=== PATIENT | male | born 1985 | race Caucasian/White ===

== ENCOUNTER 2016-07-16 01:26 | Emergency (ER) | payer SELFPAY ==
[~2016-07-16] VITALS: Ht 175.3 cm; Wt 83.9 kg
[2016-07-16] MEDS ORDERED: ONDANSETRON HCL/PF 4 MG/2 ML VIAL ONE (02:05)
[2016-07-16] MEDS ORDERED: HYDROMORPHONE 1 MG/1 ML DISP.SYRIN ONE (02:05)
[2016-07-16] MEDS ORDERED: IV SET PRIMARY 1 EA INFUS.SET MC ONE (02:05)
[2016-07-16] MEDS ORDERED: IV NS 0.9% 1,000 ML ONE (02:05)
--- NOTE | 2016-07-16 02:14 | NUR ---
PT A/OX4 BREATHING EFFORTLESSLY ON ROOM AIR, PT STATES HE STARTED HAVING ABD PAIN RADIATING TOWARDS HIS BACK X 3 HOURS, PT STATES HE HAS BEEN HVAING N/V BUT DENIES DIARRHEA, PT ON MONITOR, IV PLACED, LABS DRAWN, IN ROOM, WILL CONTINUE TO MONITOR
[2016-07-16] MEDS ORDERED: HYDROMORPHONE INJ 2 MG/ML DISP.SYRIN IV ONE (02:30)
[2016-07-16] MEDS ORDERED: ONDANSETRON HCL/PF 4 MG/2 ML VIAL IVP ONE (02:30)
[2016-07-16] MEDS ORDERED: IV NS 0.9% 1,000 ML BAG IV ONE (02:30)
--- NOTE | 2016-07-16 02:33 | NUR ---
PT STATES HE IS FEELING ALOT BETTER AFTER THE PAIN MEDICATION, MD MADE AWARE WILL CONTINUE TO MONITOR.
[2016-07-16 02:42] LABS: BASOPHILS # (AUTO) 0.1 /CMM (0.0-0.2); BASOPHILS % (AUTO) 0.3 % (0.0-2.0); EOSINOPHILS % (AUTO) 0.2 % (0.0-6.0); HEMATOCRIT 47 % (39-51); HEMOGLOBIN 16.2 g/dL (13.5-17.5); LYMPHOCYTES # (AUTO) 2.1 /CMM (0.8-4.8); MEAN CORPUSCULAR HEMOGLOBIN 30 PG (26.0-33.0); MEAN CORPUSCULAR HGB CONC 34 g/dl (31.0-36.0); MEAN CORPUSCULAR VOLUME 87 fL (80-96); MONOCYTES # (AUTO) 0.8 /CMM (0.1-1.30); MONOCYTES % (AUTO) 5.2 % (2.0-12.0); NEUTROPHILS % (AUTO) 81.3 % (43.0-81.0); PLATELET COUNT (AUTO) 289 /CMM (150-450); RDW COEFFICIENT OF VARIATION 12.6 (11.5-15.0); RED BLOOD CELL COUNT(AUTO) 5.42 MIL/uL (4.5-6.0)
[2016-07-16 02:54] LABS: CALCIUM, SERUM 9.2 mg/dL (8.5-10.1); CREATININE 1.4 mg/dL (0.6-1.3); POTASSIUM 3.4 mmol/L (3.5-5.1)
[2016-07-16 03:03] LABS: INR 1.03 (0.87-1.13)
[2016-07-16 03:08] LABS: ALBUMIN 4.6 g/dL (3.4-5.0); BILIRUBIN,DIRECT 0.1 mg/dL (0.0-0.2); BILIRUBIN,TOTAL 0.3 mg/dL (0.2-1.0)
[2016-07-16] MEDS ORDERED: KETOROLAC TROMETHAMINE 15 MG/ML VIAL ONE (03:18)
[2016-07-16 03:32] LABS: APPEARANCE,URINE CLEAR (CLEAR); BILIRUBIN,URINE NEGATIVE (NEGATIVE); BLOOD, URINE 3+ Ery/uL (NEGATIVE); COLOR,URINE YELLOW (YELLOW); KETONES,URINE 1+ (NEGATIVE); LEUKOCYTE ESTERASE ,URINE NEGATIVE (NEGATIVE); NITRITE, URINE NEGATIVE (NEGATIVE); PROTEIN,URINE TRACE mg/dl (NEGATIVE); UGLUCOSE NEGATIVE (NEGATIVE); UROBILINOGEN,URINE 0.2 EU/dL (0.2)
--- NOTE | 2016-07-16 03:36 | NUR ---
PT SLEEPING RIGHT NOW, PT ON MONITOR, VSS, PT FRIENDS AT BEDSIDE, MD MADE AWARE WILL CONTINUE TO MONITOR.
[2016-07-16 03:42] LABS: ADD URINE CULTURE NO; BACTERIA,URINE Few /HPF (None Seen); WBC,URINE 0-2 /HPF (0-3)
[2016-07-16 03:43] LABS: MUCUS,URINE Moderate /LPF (None Seen)
[2016-07-16] MEDS ORDERED: KETOROLAC TROMETHAMINE INJ 30 MG/ML VIAL IV ONE (04:00)
[2016-07-16 05:16] VITALS: BP 120/74
[2016-07-16 09:36] LABS: SQUAMOUS EPITHELIAL CELL,UR Rare /HPF (None Seen)
== END 2016-07-16 05:16 | disposition home or self-care (01) ==
LOC: ER 01:30
DX: N23 Unspecified renal colic (principal)
CPT/HCPCS: 36415; 74176; 80048; 80076; 81001; 83690; 85025; 85730; 96361; 96374; 96375; 99285; A4606; J1170; J1885; J2405; J7030; Z7610; 81000-TC